=== PATIENT | female | born 1990 | race African-American/Black ===

== ENCOUNTER 2019-10-20 12:53 | Emergency (ER) | payer SELFPAY ==
--- NOTE | ~2019-10-20 | CT_ITS ---
EXAMINATION: CTA chest PE protocol EXAM DATE: 10/20/2019 15:24 INDICATION: Dyspnea. TECHNIQUE: Spiral CTA of the chest (pulmonary arteries) was performed with 100 cc Omnipaque 350 intr avenous contrast injection. Images were acquired during the pulmonary arterial phase. Coronal maxi mum intensity projection 3D-reconstructions were created by the technologist on dedicated workstation . Axial, coronal and sagittal reformatted images were reviewed. The dose-length product (DLP) for t his examination was 229.93 mGy-cm. The exposure was tailored according to patient size (auto mA exp osure control), and iterative reconstruction (ASIR) was used as additional dose reduction technique. There is no prior study for comparison. FINDINGS: Pulmonary arteries are well opacified and without intraluminal filling defects. No thora cic aortic dissection. The lungs are clear. There are no pleural or pericardial effusions. Trach eobronchial tree is patent. There is no mediastinal, hilar or axillary lymphadenopathy. There is no pneumothorax. Heart normal in size. No evidence of coronary arterial calcification. Upper abd omen is unremarkable. There is thoracic spondylosis without osteoblastic or osteolytic lesions iden tified. IMPRESSION: 1. Normal CT pulmonary examination. Reviewed, dictated and finalized at location A.
--- NOTE | ~2019-10-20 | XR_ITS ---
EXAMINATION: XR chest 2V 10/20/2019 13:18 INDICATION: Shortness of breath. Chest pain after panic attack. PROCEDURE: 2 view chest COMPARISON: No prior studies for comparison. FINDINGS: The lungs are clear. The cardiomediastinal silhouette is within normal limits. There are no pleural effusions. There is no pneumothorax suspected. IMPRESSION: 1: NO ACUTE CARDIOPULMONARY DISEASE. Reviewed, dictated and finalized at location A.
[2019-10-20 12:52] VITALS: BP 112/74; PULSE 92; RESP 30; TEMP 36.9; O2SAT 100
--- NOTE | 2019-10-20 13:01 | ECG_ITS ---
Measurements Intervals [place] Rate: 83 P: 30 VA: 166 QRS: 25 QRSD: 79 T: 34 QT: 353 QTc: 417 Interpretive Statements SINUS RHYTHM ST ELEVATION IN ANTEROLAT/LAT LEADS- PROBABLY EARLY REPOLARIZATION BASELINE ARTIFACT- II, III, AVL, AVF, V2 BORDERLINE ECG Electronically Signed On 10-20-2019 13:41:21 CDT by Jonn Trimble D.O.
--- NOTE | 2019-10-20 13:27 | ED.ANXIETY ---
HPI - Anxiety General Chief Complaint: Anxiety Stated Complaint: CP/SOB AFTER PANIC ATTACK Source: RN notes reviewed History of Present Illness HPI narrative: Patient presents emergency department from home for anxiety tach. Patient states prior to arrival she began to feel short of breath and had midsternal chest pain. Patient states she had a similar episode last night as well as this morning. States she has a history of anxiety but is not have any current medication. Patient states she is feeling better at this time but is still feeling anxious she denies any fevers or chills abdominal pain nausea vomiting or any other symptoms. Patient states she does have a history of breast cancer diagnosed in May was on chemo but that has been postponed secondary to COVID currently visiting her significant other from [place] Related Data Allergies Allergy/AdvReac Type Severity Reaction Status Date / Time No Known Allergies Allergy Verified 10/20/19 12:59 Review of Systems Review of Systems: Narrative: Gen.: Denies fevers or chills Eyes: Denies eye pain or visual change ENT: Denies congestion Respiratory: See HPI CV: See HPI GI: Denies abdominal pain nausea, emesis or diarrhea denies burning, urgency, frequency or hematuria Musculoskeletal: Denies back pain or muscle pain Neuro: Denies numbness, tingling, weakness or focal weakness Skin: Denies rash Psych: Reports anxiety Except as documented, all other systems reviewed and negative [facility] Past Medical History Medical History (Updated 10/20/19 @ 16:38 by Hitesh Denton DO) Anxiety Breast cancer Social History Social History (Updated 10/20/19 @ 16:37 by Hitesh Denton DO) Smoking status: Never smoker Exam Narrative: Exam Narrative: APPEARANCE: No acute distress, nontoxic, resting in bed EYES: EOMI HEENT: Normocephalic, atraumatic, OMM RESPIRATORY: No respiratory distress Clear to auscultation bilaterally with no rhonchi wheezing or rales. CARDIOVASCULAR: Regular rate and rhythm without murmurs rubs or gallops. ABDOMINAL: Soft, nontender, nondistended, no rebound or guarding MUSCULOSKELETAl: Moves all extremities. No clubbing, cyanosis or edema. NEURO: Awake and alert. Following commands, speech normal, no focal deficits SKIN:: Warm, dry. No rashes lesions or abrasions PSYCHIATRIC: N anxious in appearance Course Course Emergency Course: Patient states she is feeling much better this time all symptoms have resolved Discussed with patient results of workup and diagnosis. Discussed need for follow-up with primary care, proper use of medication, and reasons to return to the emergency department. Patient understands and agrees to current treatment plan Vital Signs Vital signs: Vital Signs Temperature 98.4 F 10/20/19 12:52 Pulse Rate 92 10/20/19 12:52 Respiratory Rate 30 H 10/20/19 12:52 Blood Pressure 112/74 10/20/19 12:52 Pulse Oximetry 100 10/20/19 12:52 Temperature 98.0 F 10/20/19 15:58 Pulse Rate 77 10/20/19 15:58 Respiratory Rate 20 10/20/19 15:58 Blood Pressure 138/77 10/20/19 15:58 Pulse Oximetry 99 10/20/19 15:58 MDM - Anxiety MDM Narrative Medical decision making narrative: Patient's EKGs and labs are without significant high risk changes. Cardiac risk factors reviewed. Patient is felt likely low risk for ACS and reasonable for further risk stratification testing as an outpatient. Pain was not sudden or maximal in onset without tearing or ripping quality. No other signs of symptoms suggest aortic dissection. A low-risk Wells criteria is noted, PE is felt to be unlikely. No pneumonia seen on evaluation today. Patient is felt to be a reasonable candidate for continued evaluation as an outpatient Lab Data Result diagrams: 10/20/19 13:35 10/20/19 13:35 Labs: Lab Results 10/20/19 10/20/19 10/20/19 Range/Units 13:35 13:35 13:35 WBC 9.6 (4.5-10.0) K/mm3 RBC 4.82 (4.2-5.4) M
[2019-10-20 13:41] LABS: Basophils Percent Auto 0.2 % (0.2-1.2); Eosinophils Percent Auto 0.3 % (0-4.4); Hematocrit 40.8 % (37.0-47.0); Hemoglobin 13.7 g/dL (12.0-15.0); Immature Granulocyte Absolute 0.04 K/mm3 (0.00-0.031); Immature Granulocyte Percent A 0.4 % (0-0.5); Lymphocytes Absolute Auto 2.36 K/mm3 (0.9-3.2); Lymphocytes Percent Auto 24.5 % (18.3-44.2); Mean Corpuscular HGB Conc 33.6 g/dl (32-36); Mean Corpuscular Hemoglobin 28.4 pg (26-34); Mean Corpuscular Volume 84.6 fl (80-100); Mean Platelet Volume 9.2 fl (7.4-10.4); Monocytes Absolute Auto 0.6 K/mm3 (0.1-0.6); Monocytes Percent Auto 6.5 % (2.6-8.5); Neutrophils Absolute Auto 6.5 K/mm3 (1.3-6.7); Neutrophils Percent Auto 68.1 % (45.5-73.1); Platelet Count Result 289 k/mm3 (150-375); Red Blood Count 4.82 M/mm3 (4.2-5.4); Red Cell Distribution Width 12.1 % (11.5-14.5); White Blood Count 9.6 K/mm3 (4.5-10.0)
[2019-10-20] MEDS: LORAZEPAM INJ 2 MG/ML VIAL 0.5 MG IV PUSH (13:41)
[2019-10-20] MEDS: SODIUM CHLORIDE 0.9% IV 1,000 ML 999 ML IV CONT (13:41)
[2019-10-20 13:54] LABS: Blood Urea Nitrogen 12 mg/dL (7-17); Calcium 9.2 mg/dL (8.4-10.2); Carbon Dioxide 26 mmol/L (22-30); Chloride 104 mmol/L (98-107); Estimated CRCL calculation 98 ml/min; Estimated Glomerular Filt Rate > 60; Glucose 86 mg/dL (65-105); Potassium 3.4 mmol/L (3.4-5.0); Sodium 136 mmol/L (137-145)
[2019-10-20 13:57] LABS: INR 1.1
[2019-10-20 13:58] LABS: Partial Thromboplastin Time 28.3 SECONDS (22.3-36.8)
[2019-10-20 14:12] LABS: Troponin I < 0.012 ng/mL (0.000-0.034)
[2019-10-20 15:58] VITALS: BP 138/77; PULSE 77; RESP 20; TEMP 36.7; O2SAT 99
[2019-10-20 16:26] LABS: Troponin I < 0.012 ng/mL (0.000-0.034)
[2019-10-20 17:12] VITALS: BP 120/77; PULSE 70; RESP 20; TEMP 36.7; O2SAT 99
== END 2019-10-20 17:13 | disposition home or self-care (01) ==
PROVIDERS: Emergency Provider Emergency Medicine
DX: F41.9 Anxiety disorder, unspecified (principal); Z85.3 Personal history of malignant neoplasm of breast
CPT/HCPCS: 36415; 71046; 71275; 80048; 81025; 84484; 85025; 85610; 85730; 93005; 96361; 96374; 99284; J2060; J7030; Q9967

== ENCOUNTER 2021-10-18 13:46 | Emergency (ER) | payer SELFPAY ==
[2021-10-18 13:48] VITALS: BP 118/60; PULSE 87; RESP 20; TEMP 36.7; O2SAT 99
--- NOTE | 2021-10-18 14:45 | ED.UPPEXIN ---
HPI - Extremity Injury (Upper) General Chief Complaint: Extremity Injury, Upper Stated Complaint: infection to left middle finger Time Seen by Provider: 10/18/21 13:56 History of Present Illness HPI narrative: 31-year-old female presents the emergency room for evaluation of swelling and tenderness to her left middle finger. Patient states that she noticed swelling and tenderness to the area around the lateral nail fold. Patient states that she is putting ice on it with no improvement of symptoms. Patient states that she recently cut her fingernails. Related Data Allergies Allergy/AdvReac Type Severity Reaction Status Date / Time No Known Allergies Allergy Verified 10/18/21 14:13 Review of Systems Review of Systems: CONSTITUTIONAL: Denies fever, chills, or sweats. EYES: Denies visual changes, redness, or discharge. ENT: Denies rhinorrhea, congestion, sore throat, or otalgia. CARDIOVASCULAR: Denies chest pain, palpitations, or edema. RESPIRATORY: Denies cough or dyspnea. GASTROINTESTINAL: Denies abdominal pain, nausea, vomiting, or diarrhea. GENITOURINARY: Denies dysuria or hematuria. SKIN: Denies rash or itching. MUSCULOSKELETAL: Denies back pain, joint pain, or myalgia. NEUROLOGIC: Denies headache, numbness, dizziness, or weakness. PSYCHIATRIC: Denies anxiety or depression. [facility] Past Medical History Medical History Anxiety Breast cancer Social History Social History Smoking status: Never smoker Exam Narrative: GENERAL: Well-appearing, well-nourished, and in no acute distress. HEAD: Normocephalic, atraumatic. EYES: PERRLA and EOMI. CHEST: Clear to auscultation. No respiratory distress. No wheezes rales or rhonchi HEART: Regular rate and rhythm. No murmur heard. Normal peripheral pulses. ABDOMEN: Soft, nontender, nondistended, normal active bowel sounds. EXTREMITIES: Normal range of motion. No edema. SKIN: Warm, dry, no rash. left middle finger: Tenderness, swelling, erythema to the lateral nail fold, no evidence of purulent drainage NEURO: No focal deficits. Alert and oriented x3. PSYCH: Normal mood and affect. Course Vital Signs Vital signs: Vital Signs Temperature 36.7 C 10/18/21 13:48 Pulse Rate 87 10/18/21 13:48 Respiratory Rate 20 10/18/21 13:48 Blood Pressure 118/60 10/18/21 13:48 Pulse Oximetry 99 10/18/21 13:48 Oxygen Delivery Room Air 10/18/21 13:48 Temperature 36.7 C 10/18/21 13:48 Pulse Rate 87 10/18/21 13:48 Respiratory Rate 20 10/18/21 13:48 Blood Pressure 118/60 10/18/21 13:48 Pulse Oximetry 99 10/18/21 13:48 Oxygen Delivery Room Air 10/18/21 13:48 Discharge Plan Discharge Clinical Impression: Paronychia Patient Disposition: Home, Self-Care Condition: Stable Instructions: Antibiotic Form, Paronychia (ED) Prescriptions: No Action alprazolam [Xanax] 0.25 mg tablet 0.25 mg PO TID PRN (Reason: anxiety) Qty: 4 0RF Follow-up/Referrals: PHYSICIAN NOT ON STAFF,NONSTAFF [Primary Care Provider] - Time of Disposition: 14:48
[2021-10-18 14:54] VITALS: BP 114/67; PULSE 74; RESP 16; TEMP 36.8; O2SAT 98
== END 2021-10-18 14:55 | disposition home or self-care (01) ==
PROVIDERS: Emergency Provider Nurse Practitioner Family
DX: L03.012 Cellulitis of left finger (principal); Z85.3 Personal history of malignant neoplasm of breast; F41.9 Anxiety disorder, unspecified
CPT/HCPCS: 99282